=== PATIENT | female | born 1985 | race Caucasian/White ===

== ENCOUNTER 2019-03-30 17:16 | Emergency (ER) | payer OTHER ==
[2019-03-30 17:32] VITALS: BP 90/66
--- NOTE | 2019-03-30 17:55 | UC ---
UC General HPI - HPI Summary HPI Summary: pt is c/o a 2 day hx of foul urine with frequent, urgency and burning with urination. she has a hx of uti's and this feels the same. no fever, kidney or abdominal pain. + bladder pressure. - History of Current Complaint Chief Complaint: UCGU Stated Complaint: URINARY Time Seen by Provider: 03/30/19 17:49 Hx Obtained From: Patient Hx Last Menstrual Period: 03/05/19 Onset/Duration: Gradual Onset Timing: Constant Pain Intensity: 8 - Allergy/Home Medications Allergies/Adverse Reactions: Allergies Allergy/AdvReac Type Severity Reaction Status Date / Time No Known Allergies Allergy Verified 03/30/19 17:32 Home Medications: Home Medications Baclofen 10 mg PO QPM 03/30/19 [History Confirmed 03/30/19] Melatonin 1 mg PO QPM 03/30/19 [History Confirmed 03/30/19] Morphine Sulfate 15 mg PO QPM 03/30/19 [History Confirmed 03/30/19] Topiramate [Topiramate ER 25 mg cap] 25 mg PO TID 03/30/19 [History Confirmed ] PMH/Surg Hx/FS Hx/Imm Hx - Additional Past Medical History Additional PMH: UTI's, chronic back pain - Surgical History Surgical History: None - Family History Known Family History: Positive: Cardiac Disease, Hypertension - Social History Alcohol Use: None Substance Use Type: None Smoking Status (MU): Never Smoked Tobacco Review of Systems All Other Systems Reviewed And Are Negative: Yes Constitutional: Negative: Fever, Chills Gastrointestinal: Negative: Abdominal Pain Genitourinary: Positive: Dysuria, Frequency, Urgency. Negative: Hematuria, Vaginal/Penile Discharge, Ulceration/Lesion, Abnormal Bleeding Musculoskeletal: Positive: Other: - chronic back pain Physical Exam Triage Information Reviewed: Yes Appearance: Well-Appearing Vital Signs: Initial Vital Signs Temp 98 F 03/30/19 17:26 Pulse 103 03/30/19 17:26 Resp 16 03/30/19 17:26 BP 90/66 03/30/19 17:26 Pulse Ox 100 03/30/19 17:26 Vital Signs Reviewed: Yes Eyes: Positive: Conjunctiva Clear Neck: Positive: Supple Respiratory: Positive: No respiratory distress Abdomen Description: Positive: Nontender, No Organomegaly, Soft. Negative: CVA Tenderness (R), CVA Tenderness (L) Musculoskeletal: Positive: ROM Intact Neurological: Positive: Alert Psychological: Positive: Age Appropriate Behavior Skin Exam: Normal Skin: Negative: Rashes Diagnostics - Laboratory Lab Results: u/a=protein, blood, leukocytes, nitrites with culture pending. Course/Dx - Differential Dx - Multi-Symptom Differential Diagnoses: Other - non toxic, no acute abdomen, hx uti's feels the same. denies risk/concern and s/s's for std. - Diagnoses Provider Diagnosis: UTI (urinary tract infection) Discharge - Sign-Out/Discharge Documenting (check all that apply): Patient Departure All imaging exams completed and their final reports reviewed: No Studies - Discharge Plan Condition: Stable Disposition: HOME Prescriptions: Nitrofurantoin Monohyd/M-Cryst [Macrobid 100 mg Capsule] 100 mg PO BID 5 Days # 10 cap Phenazopyridine 200 mg (NF) [Pyridium 200 MG tab *] 200 mg PO TID 2 Days #6 tab Patient Education Materials: Urinary Tract Infection in Women (ED) Referrals: Chau Iqbal MD [Medical Doctor] - Additional Instructions: follow up if not better in 5-7 days or sooner if worse. - Billing Disposition and Condition Condition: STABLE Disposition: Home
--- NOTE | 2019-04-03 10:08 | UC ---
- Progress Note Progress Note: final urine Cx report: E coli sensitive to nitrofurantoin, Patient already on nitrofurantoin. No change in plan. Course/Dx - Diagnoses Provider Diagnoses: UTI (urinary tract infection) Discharge - Sign-Out/Discharge Documenting (check all that apply): Post-Discharge Follow Up All imaging exams completed and their final reports reviewed: No Studies - Discharge Plan Condition: Stable Disposition: HOME Prescriptions: Nitrofurantoin Monohyd/M-Cryst [Macrobid 100 mg Capsule] 100 mg PO BID 5 Days # 10 cap Phenazopyridine 200 mg (NF) [Pyridium 200 MG tab *] 200 mg PO TID 2 Days #6 tab Patient Education Materials: Urinary Tract Infection in Women (ED) Referrals: Chau Iqbal MD [Medical Doctor] - Additional Instructions: follow up if not better in 5-7 days or sooner if worse. - Billing Disposition and Condition Condition: STABLE Disposition: Home
== END 2019-03-30 18:01 | disposition home or self-care (01) ==
LOC: UCCORT 17:16
DX: N39.0 Urinary tract infection, site not specified (principal); G89.29 Other chronic pain; M54.9 Dorsalgia, unspecified
CPT/HCPCS: 81003; 84702; 87077; 87086; 87186; 99212; G0463

== ENCOUNTER 2019-08-26 13:38 | Emergency (ER) | payer OTHER ==
[2019-08-26 14:04] VITALS: BP 101/62
--- NOTE | 2019-08-26 14:27 | UC ---
Skin Complaint HPI - HPI Summary HPI Summary: Pt presents with c/o sudden onset of numerous painful, blisters on upper and lower lips that are clear fluid filled that will spontaneously open and drain X 3 days. Pt also c/o sudden onset of left eye redness, clear drainage and left corner of eye tenderness. Pt c/o that upper lip swelling was worse at onset has improved with use of abreva. - History of Current Complaint Chief Complaint: UCEye Time Seen by Provider: 08/26/19 14:19 Stated Complaint: SORES IN MOUTH,EYE IRRITATION Hx Obtained From: Patient Hx Last Menstrual Period: 04/28/19 ?: No Onset/Duration: Gradual Onset, Lasting Days Skin Exposure Onset/Duration: Days Ago Timing: Constant Onset Severity: Severe Current Severity: Moderate Pain Intensity: 9 Location: Discrete - upper lip, Other - left eye Character: Swelling, Redness, Raised, Painful Aggravating Factor(s): Touch Alleviating Factor(s): OTC Meds - abreva Associated Signs & Symptoms: Positive: Rash, Tenderness - Allergy/Home Medications Allergies/Adverse Reactions: Allergies Allergy/AdvReac Type Severity Reaction Status Date / Time hydrocodone AdvReac Itching Verified 08/26/19 14:04 PMH/Surg Hx/FS Hx/Imm Hx - Additional Past Medical History Additional PMH: Has hx of herpes zoster Previously Healthy: Yes - Surgical History Surgical History: None - Family History Known Family History: Positive: Cardiac Disease, Hypertension, Non-Contributory - Social History Occupation: Employed Full-time Lives: With Family Alcohol Use: Occasionally Substance Use Type: None Smoking Status (MU): Never Smoked Tobacco Have You Smoked in the Last Year: No Review of Systems All Other Systems Reviewed And Are Negative: Yes Constitutional: Positive: Negative Skin: Positive: Rash - upper lip Eyes: Positive: Drainage, Eye Redness ENT: Positive: Negative Respiratory: Positive: Negative Cardiovascular: Positive: Negative Gastrointestinal: Positive: Negative Genitourinary: Positive: Negative Motor: Positive: Negative Neurovascular: Positive: Negative Musculoskeletal: Positive: Negative Neurological: Positive: Negative Psychological: Positive: Negative Is Patient Immunocompromised?: No Physical Exam Triage Information Reviewed: Yes Appearance: Well-Appearing Vital Signs: Initial Vital Signs Temp 99.4 F 08/26/19 13:59 Pulse 88 08/26/19 13:59 Resp 15 12/13/19 13:59 BP 101/62 08/26/19 13:59 Pulse Ox 99 08/26/19 13:59 Vital Signs Reviewed: Yes Eyes: Positive: Discharge - clear, Other: - eye redness ENT Exam: Normal Dental Exam: Normal Neck exam: Normal Respiratory Exam: Normal Respiratory: Positive: No respiratory distress Musculoskeletal Exam: Normal Neurological Exam: Normal Psychological Exam: Normal Skin: Positive: Rashes - upper lip Course/Dx - Differential Diagnoses - Skin Complaint Differential Diagnoses: Varicella Zoster - Diagnoses Provider Diagnosis: Oral herpes simplex infection Discharge ED - Sign-Out/Discharge Documenting (check all that apply): Patient Departure All imaging exams completed and their final reports reviewed: No Studies - Discharge Plan Condition: Stable Disposition: HOME Prescriptions: Cephalexin CAP* [Keflex 500 CAP*] 500 mg PO Q8H #21 cap predniSONE TAB* [Deltasone 10 MG TAB*] 30 mg PO DAILY #12 tab ValACYclovir (*) [Valtrex 1 GM(*)] 1 gm PO Q12H #20 tab Patient Education Materials: Canker Sores (ED), Eye Pain (ED), Conjunctivitis ( ED) Referrals: [facility] [place] [facility] [Outside] - If Needed No Primary Care Phys,NOPCP [Primary Care Provider] - Additional Instructions: Please follow up with your PCP as soon as possible. - Billing Disposition and Condition Condition: STABLE Disposition: Home
== END 2019-08-26 14:40 | disposition home or self-care (01) ==
LOC: UCCORT 13:38
DX: B00.1 Herpesviral vesicular dermatitis (principal); H57.89 Other specified disorders of eye and adnexa; Z88.5 Allergy status to narcotic agent
CPT/HCPCS: 99212; G0463